=== PATIENT | male | born 1935 | race Caucasian/White ===

== ENCOUNTER → 2016-07-21 | Outpatient (CLI) | payer OTHER, MEDICARE ==
[~2016-07-21] VITALS: Ht 175.3 cm; Wt 83.5 kg
[~2016-07-21] MED LIST: ALDACTONE25 MG PO; ASPIRIN325 PO; CALCIUM PO; COREG PO; COREG25 MG PO; IRON PO; IRON325 PO; LASIX 20 MG TAB20 MG PO; LASIX 40 MG TAB40 M1; LEVAQUIN 750 M750 MG; LISINOPRIL10 MG PO; LISINOPRIL20 MG PO; MECLIZINE HCL25 M1 PO; MELATONIN3 MG PO; PACERONE 200 M200 M1 PO; POTASSIUM PO; POTASSIUM20 PO; PRILOSEC40 MG PO; RYTHMOL SR225 MG PO; SAW PALMETTO160 M1 PO; SYNTHROID137 MCG PO; TYLENOL325 MG PO; VITAMIN B-625 MG PO; VITAMIN D400 UNI1; VITAMIN D5000 UNIT PO; VITAMIN E PO; XARELTO20 MG PO; [UNRECOGNIZED DRUG - OTHER] PO
--- NOTE | ~2016-07-21 | P ---
[facility] [place] [address] PROCEDURE REPORT Name: ANTWAN,MEHUL GRAY [id number] Admission: 07/21/16 Attend Phys: Charlie Calvin MD Discharge: Date of : 35 Report #: [id number] THIS REPORT FOR: //name// CC: Timur Calvin DATE OF SERVICE: 07/21/2016 PROCEDURE: AV node ablation. PREOPERATIVE DIAGNOSIS: Atrial fibrillation. POSTOPERATIVE DIAGNOSIS: Atrial fibrillation. 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 ANESTHESIA: The patient underwent MAC anesthesia with no anesthesia related complications. DESCRIPTION OF PROCEDURE: The patient underwent informed consent. We discussed the details of the procedure including the risks, which include, but not limited to bleeding, infection, stroke, IA. He understood these risks and was willing to proceed. He was brought to the EP laboratory in a fasting and sedated state and prepped and draped in a sterile fashion. I injected 5 mL of lidocaine to the right groin and obtained access to the right femoral vein times 1 and placed a SR0 sheath using the modified Seldinger technique and then placed an 8-mm ablation catheter into the right atrium. Prior to the procedure, his ICD was interrogated and found to be functioning normally and his therapies were disabled. Next, ablation was performed at 70 nova and 60 degrees at the level of the AV node and eventually, there was induction of complete heart block with biventricular pacing. The patient was monitored for a period of 30 minutes with no return of conduction. His ICD was reinterrogated, found to be functioning normally and his therapies were . Catheters and sheaths were pulled, hemostasis was obtained and the patient awoke neurologically and hemodynamically intact with no complications and no significant bleeding. CONCLUSIONS: [facility] [address] [address] PROCEDURE REPORT Name: MEHUL MONCADA Room #: REG [facility]#: [id number] Admission: 07/21/16 Attend Phys: Charlie Calvin MD Discharge: Date of : 35 Report #: [id number] 1. Successful AV node ablation. 2. Successful [employer] biventricular ICD reprogramming. <ELECTRONICALLY SIGNED> By: Charlie Calvin MD 07/21/16 [id number] Charlie Calvin MD /nt
[2016-07-21 07:06] VITALS: BP 124/75
[2016-07-21 07:32] LABS: APTT 27.2 Seconds (24.5-32.8); INR 1.2; PROTIME 12.1 Seconds (9.3-11.4)
[2016-07-21 07:39] LABS: CALCIUM 8.9 mg/dL (8.5-10.1); POTASSIUM 4.2 mmol/L (3.5-5.1)
[2016-07-21 07:40] LABS: ABSOLUTE NEUTROPHILS 3.7 thou/uL (1.4-8.2); EOSINOPHILS 6.3 % (0.0-3.0); HEMATOCRIT 37.3 % (42.0-52.0); HEMOGLOBIN 12.7 gm/dL (14.0-18.0); LYMPHOCYTES 17.4 % (24.0-44.0); MCH 30.7 pg (26.0-34.0); MCHC 34.2 % (28.0-37.0); MCV 89.8 fL (80.0-100.0); MONOCYTES 9.3 % (1.0-8.0); PLATELET COUNT 203 thou/uL (150-400); RBC 4.15 mil/uL (4.50-6.00); RDW 14.1 % (10.5-14.5); WBC 5.7 thou/uL (4.0-11.0)
[2016-07-21 07:44] LABS: ALBUMIN 3.7 g/dL (3.4-5.0); TOTAL BILIRUBIN 0.8 mg/dL (<0.1-1.0); TOTAL PROTEIN 6.9 g/dL (6.4-8.2)
[2016-07-21 07:49] LABS: MANUAL DIFF NO
== END | disposition home or self-care (01) ==
LOC: CATH 06:32
PROVIDERS: Internal Medicine Cardiovascular Disease
DX: I48.2 Chronic atrial fibrillation (principal); I42.9 Cardiomyopathy, unspecified; I50.9 Heart failure, unspecified; K21.9 Gastro-esophageal reflux disease without esophagitis; I10 Essential (primary) hypertension; Z87.891 Personal history of nicotine dependence
CPT/HCPCS: 70005